=== PATIENT | female | born 1970 | race Hispanic/Latino ===

== ENCOUNTER 2020-08-06 14:40 | Outpatient (CLI) | payer OTHER ==
[2020-08-06 15:20] LABS: Basophils % (Auto) 0.5 % (0.0-1.8); Chol/HDL Ratio 4.08 %; Eosinophils # (Auto) 0.3 K/mm3 (0.0-0.4); Eosinophils % (Auto) 3.8 % (0.0-4.3); Hematocrit 42.7 % (30.3-42.9); Lymphocytes # (Auto) 2.8 K/mm3 (1.2-5.4); Lymphocytes % (Auto) 36.7 % (13.4-35.0); Mean Corpuscular HGB Conc 35 % (30-34); Mean Corpuscular Volume 106 fl (79-97); Monocytes # (Auto) 0.5 K/mm3 (0.0-0.8); Monocytes % (Auto) 6.7 % (0.0-7.3); Platelet Count 170 K/mm3 (140-440); Red Blood Count 4.03 M/mm3 (3.65-5.03); Red Cell Distribution Width 12.8 % (13.2-15.2)
[2020-08-12 11:15] LABS: Vitamin D, 25-OH, D2 <4 ng/mL
== END 2020-08-06 14:41 | disposition home or self-care (01) ==
LOC: LAB 14:40
PROVIDERS: ATTEND Internal Medicine
DX: Z00.00 Encounter for general adult medical examination without abnormal findings (principal); I10 Essential (primary) hypertension; E03.9 Hypothyroidism, unspecified; Z13.1 Encounter for screening for diabetes mellitus; E56.9 Vitamin deficiency, unspecified; Z13.220 Encounter for screening for lipoid disorders; R73.9 Hyperglycemia, unspecified
CPT/HCPCS: 36415; 80061; 82306; 82607; 83036; 84443; 85025

== ENCOUNTER 2021-03-11 09:11 | Outpatient (CLI) | payer OTHER ==
[2021-03-11 09:51] LABS: Alanine Aminotransferase 111 units/L (7-56); Albumin 4.8 g/dL (3.9-5); Blood Urea Nitrogen 14 mg/dL (7-17); Calcium 9.7 mg/dL (8.4-10.2); Chol/HDL Ratio 3.11 %; HDL Cholesterol 63 mg/dL (40-59); Hemolysis Index 6; LDL Cholesterol,Direct 125 mg/dL (50-130)
[2021-03-11 10:09] LABS: BUN/Creatinine Ratio 20
== END 2021-03-11 09:12 | disposition home or self-care (01) ==
LOC: LAB 09:11
PROVIDERS: ATTEND Internal Medicine
DX: Z13.1 Encounter for screening for diabetes mellitus (principal); E11.65 Type 2 diabetes mellitus with hyperglycemia; E78.5 Hyperlipidemia, unspecified; E03.9 Hypothyroidism, unspecified
CPT/HCPCS: 36415; 80053; 80061; 83036; 84443

== ENCOUNTER 2021-05-03 11:34 | Emergency (ER) | payer OTHER ==
[2021-05-03 13:48] VITALS: BP 155/105
--- NOTE | 2021-05-03 15:35 | Emergency Department Report ---
ED General Adult HPI - General Chief complaint: High BP Stated complaint: BLOOD PRESSURE Time Seen by Provider: 05/03/21 13:52 Source: patient Mode of arrival: Ambulatory Limitations: No Limitations - History of Present Illness Initial comments: 51-year-old female patient presents with complaints of dizziness for the past 2 months. Patient states the dizziness began after she had a head injury. She states that head injury was evaluated via CT which had normal findings. She states the dizziness feels like the room is spinning and occurs with movement of her head and getting up and down from a seated position. She denies any loss of hearing, ringing in the ears, headache, vomiting, vision changes, confusion, memory loss, difficulty with speech/ambulation, or numbness/tingling/weakness in her limbs. Patient states she is not on blood thinners. She does have history of hypertension states she became alarmed when her pressure was elevated at 150/111 yesterday. Patient reports she has been following with her primary care doctor for this dizziness who recommended meclizine, however she states she did not want to take this because it would make her drowsy. -: Gradual - Related Data Previous Rx's Medication Instructions Recorded Last Taken Type Fluconazole [Diflucan TAB] 200 mg PO QDAY #1 tablet 05/03/21 Unknown Rx Meclizine [Antivert] 25 - 50 mg PO BID PRN #20 tablet 05/03/21 Unknown Rx Allergies Allergy/AdvReac Type Severity Reaction Status Date / Time ciprofloxacin [From Cipro] AdvReac Itching Unverified 03/11/21 09:12 hydrocodone AdvReac Itching Unverified 03/11/21 09:12 ED Review of Systems ROS: Stated complaint: BLOOD PRESSURE Other details as noted in HPI Constitutional: denies: chills, diaphoresis, fever, malaise Respiratory: denies: cough, shortness of breath Cardiovascular: denies: chest pain Skin: denies: change in color Neurological: denies: headache, numbness, paresthesias, abnormal gait ED Past Medical Hx - Past Medical History Previous Medical History?: Yes Hx Hypertension: Yes - Surgical History Past Surgical History?: Yes Additional Surgical History: tummy tuck, hyst - Medications Home Medications: Home Medications Medication Instructions Recorded Confirmed Last Taken Type Fluconazole [Diflucan TAB] 200 mg PO QDAY #1 tablet 05/03/21 Unknown Rx Meclizine [Antivert] 25 - 50 mg PO BID PRN #20 tablet 05/03/21 Unknown Rx ED Physical Exam - General Limitations: No Limitations General appearance: alert, in no apparent distress - Head Head exam: Present: atraumatic, normocephalic - Eye Eye exam: Present: normal appearance, PERRL, EOMI. Absent: scleral icterus - Neck Neck exam: Present: normal inspection - Respiratory Respiratory exam: Present: normal lung sounds bilaterally. Absent: respiratory distress - Cardiovascular Cardiovascular Exam: Present: regular rate, normal rhythm. Absent: systolic murmur, diastolic murmur, rubs, gallop - Neurological Exam Neurological exam: Present: alert, oriented X3, CN II-XII intact, normal gait. Absent: motor sensory deficit - Expanded Neurological Exam Expanded Cerebellar function: Finger to Nose: Normal, Heel to Khalil: Normal, Romberg: Normal Sensory exam: Upper Extremity Light Touch: Normal, Lower Extremity Light Touch: Normal Motor strength exam: RUE: 5, LUE: 5, RLE: 5, LLE: 5 - Psychiatric Psychiatric exam: Present: normal affect, normal mood - Skin Skin exam: Present: warm, dry, intact, normal color. Absent: rash ED Course Vital Signs 05/03/21 13:44 Temperature 97.9 F Pulse Rate 84 Respiratory 18 Rate Blood Pressure 155/105 [Right] O2 Sat by Pulse 97 Oximetry ED Medical Decision Making - Lab Data Result diagrams: 05/03/21 15:26 05/03/21 15:26 Lab Results 05/03/21 05/03/21 05/03/21 Range/Units 15:26 15:26 15:26 WBC 7.9 (4.5-11.0) K/mm3 RBC 3.99 (3.65-5.03) M/mm3 Hgb 14.4 H (10.1-14.3) gm/dl Hct 40.9 (30.3-42.9) % MCV 103 H (79-97) fl MCH 36 H (28-32) pg MCHC 35 H (30-34) % RDW 12.5 L (13.2-15.2) % Plt Count 164 (140-440) K/mm3 Lymph % (Auto) 37.1 H (13.4-35.0) % [place] % (Auto) 7.3 (0.0-7.3) % Eos % (Auto) 3.5 (0.0-4.3) % Baso % (Auto) 0.5 (0.0-1.8) % Lymph # (Auto) 2.9 (1.2-5.4) K/mm3 [place] # (Auto) 0.6 (0.0-0.8) K/mm3 Eos # (Auto) 0.3 (0.0-0.4) K/mm3 Baso # (Auto) 0.0 (0.0-0.1) K/mm3 Seg Neutrophils % 51.6 (40.0-70.0) % Seg Neutrophils # 4.1 (1.8-7.7) K/mm3 Sodium 136 L (137-145) mmol/L Potassium 4.4 (3.6-5.0) mmol/L Chloride 95.0 L (98-107) mmol/L Carbon Dioxide 26 (22-30) mmol/L Anion Gap 19 mmol/L BUN 12 (7-17) mg/dL Creatinine 0.7 (0.6-1.2) mg/dL Estimated GFR > 60 ml/min BUN/Creatinine Ratio 17 % Glucose 270 H (65-100) mg/dL Calcium 10.1 (8.4-10.2) mg/dL Total Bilirubin 2.20 H (0.1-1.2) mg/dL AST 154 H (5-40) units/L ALT 186 H (7-56) units/L Alkaline Phosphatase 186 H (35-129) units/L Troponin T < 0.010 (0.00-0.029) ng/mL Total Protein 8.4 H (6.3-8.2) g/dL Albumin 4.7 (3.9-5) g/dL Albumin/Globulin Ratio 1.3 % TSH 5.310 H (0.270-4.200) mlU/mL Urine Color (Yellow) Urine Turbidity (Clear) Urine pH (5.0-7.0) Ur Specific [place] (1.003-1.030) Urine Protein (Negative) mg/dL Urine Glucose (UA) (Negative) mg/dL Urine Ketones (Negative) mg/dL Urine Blood (Negative) Urine Nitrite (Negative) Urine Bilirubin (Negative) Urine Urobilinogen (<2.0) mg/dL Ur Leukocyte Esterase (Negative) Urine WBC (Auto) (0.0-6.0) /HPF Urine RBC (Auto) (0.0-6.0) /HPF U Epithel Cells (Auto) (0-13.0) /HPF Urine Mucus /HPF 05/03/21 Range/Units Unknown WBC (4.5-11.0) K/mm3 RBC (3.65-5.03) M/mm3 Hgb (10.1-14.3) gm/dl Hct (30.3-42.9) % MCV (79-97) fl MCH (28-32) pg MCHC (30-34) % RDW (13.2-15.2) % Plt Count (140-440) K/mm3 Lymph % (Auto) (13.4-35.0) % [place] % (Auto) (0.0-7.3) % Eos % (Auto) (0.0-4.3) % Baso % (Auto) (0.0-1.8) % Lymph # (Auto) (1.2-5.4) K/mm3 [place] # (Auto) (0.0-0.8) K/mm3 Eos # (Auto) (0.0-0.4) K/mm3 Baso # (Auto) (0.0-0.1) K/mm3 Seg Neutrophils % (40.0-70.0) % Seg Neutrophils # (1.8-7.7) K/mm3 Sodium (137-145) mmol/L Potassium (3.6-5.0) mmol/L Chloride (98-107) mmol/L Carbon Dioxide (22-30) mmol/L Anion Gap mmol/L BUN (7-17) mg/dL Creatinine (0.6-1.2) mg/dL Estimated GFR ml/min BUN/Creatinine Ratio % Glucose (65-100) mg/dL Calcium (8.4-10.2) mg/dL Total Bilirubin (0.1-1.2) mg/dL AST (5-40) units/L ALT (7-56) units/L Alkaline Phosphatase (35-129) units/L Troponin T (0.00-0.029) ng/mL Total Protein (6.3-8.2) g/dL Albumin (3.9-5) g/dL Albumin/Globulin Ratio % TSH (0.270-4.200) mlU/mL Urine Color Yellow (Yellow) Urine Turbidity Clear (Clear) Urine pH 6.0 (5.0-7.0) Ur Specific [place] 1.021 (1.003-1.030) Urine Protein 30 mg/dl (Negative) mg/dL Urine Glucose (UA) >=500 (Negative) mg/dL Urine Ketones Neg (Negative) mg/dL Urine Blood Sm (Negative) Urine Nitrite Neg (Negative) Urine Bilirubin Neg (Negative) Urine Urobilinogen < 2.0 (<2.0) mg/dL Ur Leukocyte Esterase Neg (Negative) Urine WBC (Auto) 1.0 (0.0-6.0) /HPF Urine RBC (Auto) 2.0 (0.0-6.0) /HPF U Epithel Cells (Auto) 8.0 (0-13.0) /HPF Urine Mucus Few /HPF - EKG Data EKG shows normal: sinus rhythm Rate: normal - Medical Decision Making 51-year-old female patient presents with complaints of dizziness for the past 2 months. Patient states the dizziness began after she had a head injury. She states that head injury was evaluated via CT which had normal findings. She states the dizziness feels like the room is spinning and occurs with movement of her head and getting up and down from a seated position. She denies any loss of hearing, ringing in the ears, headache, vomiting, vision changes, confusion, memory loss, difficulty with speech/ambulation, or numbness/tingling/weakness in her limbs. Patient states she is not on blood thinners. She does have history of hypertension states she became alarmed when her pressure was elevated at 150/111 yesterday. Patient reports she has been following with her primary care doctor for this dizziness who recommended mecl izine, however she states she did not want to take this because it would make her drowsy. Neuro exam is normal. No significant abnormalities noted LFTs noted to be elevated on CMP. Mild elevation of TSH also noted. Upon further questioning, patient states she is aware of the LFT elevation and has discussed it with her primary care doctor. She states it is due to heavy alcohol intake. No abd ominal pain per patient today. She also reports that she has history of thyroidectomy and her TSH is usually mildly elevated. Suspect benign positional vertigo. Recommend meclizine. Patient to follow-up with ENT within 3 to 5 days. Also recommend follow-up with neurology. She is well-appearing, her vitals are within normal limits, she is stable for discharge home. Strict return precautions were discussed in detail with patient who verbalizes understanding. Critical care attestation.: If time is entered above; I have spent that time in minutes in the direct care of this critically ill patient, excluding procedure time. ED Disposition Clinical Impression: Dizziness Disposition: DC-01 TO HOME OR SELFCARE Is pt being admited?: No Condition: Stable Instructions: Benign Positional Vertigo, Dizziness Prescriptions: Meclizine [Antivert] 25 - 50 mg PO BID PRN #20 tablet PRN Reason: Vertigo Fluconazole [Diflucan TAB] 200 mg PO QDAY #1 tablet Referrals: WAQAS STRONG MD [Staff Physician] - 3-5 Days ANGELA DUNLAP MD [Staff Physician] - as needed Forms: Work/School Release Form(ED)
[2021-05-03 16:27] LABS: Basophils % (Auto) 0.5 % (0.0-1.8); Eosinophils # (Auto) 0.3 K/mm3 (0.0-0.4); Eosinophils % (Auto) 3.5 % (0.0-4.3); Hematocrit 40.9 % (30.3-42.9); Hemoglobin 14.4 gm/dl (10.1-14.3); Lymphocytes # (Auto) 2.9 K/mm3 (1.2-5.4); Lymphocytes % (Auto) 37.1 % (13.4-35.0); Mean Corpuscular HGB Conc 35 % (30-34); Mean Corpuscular Volume 103 fl (79-97); Monocytes # (Auto) 0.6 K/mm3 (0.0-0.8); Monocytes % (Auto) 7.3 % (0.0-7.3); Platelet Count 164 K/mm3 (140-440); Red Blood Count 3.99 M/mm3 (3.65-5.03); Red Cell Distribution Width 12.5 % (13.2-15.2)
[2021-05-03 16:28] LABS: Alanine Aminotransferase 186 units/L (7-56); Albumin 4.7 g/dL (3.9-5); Blood Urea Nitrogen 12 mg/dL (7-17); Calcium 10.1 mg/dL (8.4-10.2); Hemolysis Index 6
[2021-05-03 16:35] LABS: BUN/Creatinine Ratio 17
[2021-05-03 16:43] LABS: Bilirubin,Urine NEG (Negative); Blood,Urine SM (Negative); Color,Urine Yellow (Yellow); Mucus,Urine FEW /HPF; Urobilinogen,Urine < 2.0 mg/dL (<2.0)
--- NOTE | 2021-05-04 10:31 | Electrocardiograph Report ---
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
== END 2021-05-04 13:44 | disposition home or self-care (01) ==
LOC: ED 11:34
DX: R42 Dizziness and giddiness (principal); I10 Essential (primary) hypertension; Z88.5 Allergy status to narcotic agent
CPT/HCPCS: 36415; 80053; 81001; 84443; 84484; 85025; 93005; 99283

== ENCOUNTER 2021-07-09 09:14 | Outpatient (CLI) | payer OTHER ==
[2021-07-09 10:23] LABS: Albumin 4.2 g/dL (3.9-5); Bilirubin,Direct 0.2 mg/dL (0-0.2); Chol/HDL Ratio 3.6 %
[2021-07-09 12:10] LABS: Hepatitis C Virus Antibody Non-Reactive (NonReactive)
[2021-07-09 12:17] LABS: Hepatitis B Surface Antigen Nonreactive (Negative)
== END 2021-07-09 09:15 | disposition home or self-care (01) ==
LOC: LAB 09:14
PROVIDERS: ATTEND Internal Medicine
DX: E11.65 Type 2 diabetes mellitus with hyperglycemia (principal); E78.5 Hyperlipidemia, unspecified; E03.9 Hypothyroidism, unspecified; R94.5 Abnormal results of liver function studies
CPT/HCPCS: 36415; 80061; 80074; 80076; 83036; 84443